=== PATIENT | male | born 1945 | race Caucasian/White ===

== ENCOUNTER 2020-10-13 05:28 | Day surgery (SDC) | payer OTHER ==
[2020-10-12 11:16] LABS: COVID AG,FIA SOURCE NASOPHARYNGEAL
[~2020-10-13] VITALS: Ht 165.1 cm; Wt 78.2 kg
[~2020-10-13 05:28] MED LIST: KETOROLAC TROMETHAMINE 0.5% 5 ML OPHTHALMIC SOLUTION ONE; MOXIFLOXACIN HCL 0.5% 3 ML OPHTHALMIC SOLUTION ONE; PHENYLEPHRINE HCL 2.5% 2 ML OPHTHALMIC SOLUTION ONE; RINGERS SOLUTION,LACTATED 500 ML IV ONE; TROPICAMIDE 1% 2 ML OPHTHALMIC SOLUTION ONE
[2020-10-13] MEDS ORDERED: MIDAZOLAM HCL 2 MG/2 ML VIAL IVP ONE (05:29)
[2020-10-13] MEDS ORDERED: FentaNYL CITRATE PF 100 MCG/2 ML VIAL IVP ONE (05:29)
[2020-10-13] MEDS ORDERED: RINGERS SOLUTION,LACTATED 500 ML IV ONE (06:00)
[2020-10-13] MEDS: TROPICAMIDE 1% 2 ML OPHTHALMIC SOLUTION OD SCH ×3 (06:10→06:25)
[2020-10-13] MEDS: PHENYLEPHRINE HCL 2.5% 2 ML OPHTHALMIC SOLUTION OD SCH ×3 (06:10→06:25)
[2020-10-13] MEDS: KETOROLAC TROMETHAMINE 0.5% 5 ML OPHTHALMIC SOLUTION OD SCH ×3 (06:10→06:25)
[2020-10-13] MEDS: MOXIFLOXACIN HCL 0.5% 3 ML OPHTHALMIC SOLUTION OD SCH ×3 (06:10→06:25)
[2020-10-13 06:17] LABS: GLUCOMETER DEV NAME(LOC) SDS.; GLUCOSE,POINT OF CARE 116 MG/DL (70-110)
[2020-10-13] MEDS ORDERED: CHOL500043 PO (06:22)
[2020-10-13] MEDS ORDERED: ATOR40TA28 PO (06:22)
[2020-10-13] MEDS ORDERED: LOSA50TA37 PO (06:22)
[2020-10-13] MEDS ORDERED: CALC500T37 PO (06:22)
[2020-10-13] MEDS ORDERED: ASPI-1450 PO (06:22)
[2020-10-13] MEDS ORDERED: AMLO-257 PO (06:22)
[2020-10-13] MEDS ORDERED: METF-960 PO (06:22)
[2020-10-13] MEDS ORDERED: TETRACAINE HCL/PF 0.5% 4 ML OPHTHALMIC SOLUTION ONE (14:57)
[2020-10-13] MEDS ORDERED: EPINEPHrine 1:1,000 [1 MG/ML] AMP ONE (14:57)
[2020-10-13] MEDS ORDERED: CHONDR SULF A SOD/HYALURONATE 1.05 ML KIT IO ONE (14:57)
[2020-10-13] MEDS ORDERED: BALANCED SALT 15 ML OPHTHALMIC IRRIG.SOLN ONE (14:57)
[2020-10-13] MEDS ORDERED: POVIDONE-IODINE 10% 15 ML SOLUTION UD ONE (14:57)
[2020-10-13] MEDS ORDERED: LIDOCAINE/PF 1% 2 ML VIAL ONE (14:57)
== END 2020-10-13 09:00 | disposition home or self-care (01) ==
LOC: SURGERY 05:28
PROVIDERS: ATTEND Ophthalmology
DX: E11.36 Type 2 diabetes mellitus with diabetic cataract (principal); H25.11 Age-related nuclear cataract, right eye; E66.3 Overweight; I10 Essential (primary) hypertension; E78.00 Pure hypercholesterolemia, unspecified; Z79.82 Long term (current) use of aspirin; Z79.899 Other long term (current) drug therapy
CPT/HCPCS: 66984; 82962; 87426; 93005; A9575; C9803; J0171; J2250; J3010; J3490; J7120; V2632